=== PATIENT | female | born 1990 | race Caucasian/White ===

== ENCOUNTER 2022-08-18 08:25 | Outpatient (CLI) | payer OTHER, SELFPAY ==
[2022-08-18 09:56] LABS: Basophils Absolute Auto 0.1 K/mm3 (0.0-0.1); Basophils Percent Auto 0.4 % (0.2-1.2); Eosinophils Absolute Auto 0.1 K/mm3 (0-0.3); Eosinophils Percent Auto 1.1 % (0-4.4); Hematocrit 38.6 % (37.0-47.0); Immature Granulocyte Absolute 0.05 K/mm3 (0.00-0.031); Immature Granulocyte Percent A 0.4 % (0-0.5); Lymphocytes Absolute Auto 2.84 K/mm3 (0.9-3.2); Lymphocytes Percent Auto 22.7 % (18.3-44.2); Mean Corpuscular HGB Conc 33.7 g/dl (32-36); Mean Corpuscular Hemoglobin 30.1 pg (26-34); Mean Corpuscular Volume 89.4 fl (80-100); Mean Platelet Volume 9.6 fl (7.4-10.4); Monocytes Absolute Auto 0.7 K/mm3 (0.1-0.6); Monocytes Percent Auto 5.6 % (2.6-8.5); Neutrophils Absolute Auto 8.8 K/mm3 (1.3-6.7); Neutrophils Percent Auto 69.8 % (45.5-73.1); Platelet Count Result 433 k/mm3 (150-375); Red Blood Count 4.32 M/mm3 (4.2-5.4); Red Cell Distribution Width 12.6 % (11.5-14.5); White Blood Count 12.5 K/mm3 (4.5-10.0)
[2022-08-18 10:07] LABS: Potassium 3.9 mmol/L (3.4-5.0)
[2022-08-18 10:10] LABS: Alanine Aminotransferase 19 U/L (6-35); Albumin Level 4.5 g/dL (3.5-5.1); Alkaline Phosphatase 56 U/L (38-126); Anion Gap 5 mmol/L (8-16); Aspartate Amino Transferase 30 U/L (14-36); Bilirubin,Total 0.4 mg/dL (0.2-1.3); Blood Urea Nitrogen 17 mg/dL (7-17); Carbon Dioxide 27 mmol/L (22-30); Chloride 104 mmol/L (98-107); Cholesterol 189 mg/dL (0-200); Estimated Glomerular Filt Rate > 60; Glucose 73 mg/dL (65-110); HDL Direct 54 mg/dL; Sodium 136 mmol/L (137-145); Triglycerides 112 mg/dL (<150)
[2022-08-18 10:18] LABS: LDL Cholesterol Direct 94 mg/dL
[2022-08-18 10:31] LABS: Hemoglobin A1C 5.4 % (<5.7)
[2022-08-18 10:38] LABS: Thyroid Stimulating Hormone 0.741 uIU/mL (0.465-4.680)
[2022-08-18 10:52] LABS: Vitamin D 25 Hydroxy 32.1 ng/mL
[2022-08-18 11:12] LABS: Hepatitis C Virus Antibody Reactive (Negative)
[2022-08-19 16:03] LABS: Rapid Plasma Reagin Non-Reactive (NonReactive)
[2022-08-20 16:25] LABS: Hepatitis C RNA, Quant PCR <15 IU/mL
[2022-08-21 12:31] LABS: Hepatitis B Core Ab Total Nonreactive (Nonreactive)
== END 2022-08-18 08:26 | disposition home or self-care (01) ==
DX: Z51.81 Encounter for therapeutic drug level monitoring (principal); Z79.899 Other long term (current) drug therapy
CPT/HCPCS: 36415; 80053; 80061; 82306; 83036; 84443; 85025; 86592; 86695; 86696; 86704; 86803; 87491; 87522; 87591; 87661